=== PATIENT | female | born 1960 | race Caucasian/White ===

== ENCOUNTER 2023-07-09 13:13 | Inpatient (IN) | payer MEDICARE, MEDICAID ==
[~2023-07-09] VITALS: Ht 165.1 cm; Wt 51.4 kg
[~2023-07-09 13:13] MED LIST: ATOR10TA PO; LAMO25TA36 PO; LOSA-381 PO; NIFE90TA91 PO
[2023-07-09] MEDS ORDERED: OMEPRAZOLE 20 MG CAPSULE PO PRN (22:15)
[2023-07-09] MEDS ORDERED: CloNIDine HCL 0.1 MG TABLET PO PRN (22:15)
[2023-07-09] MEDS ORDERED: ALBUTEROL SULFATE HFA 90 MCG/PUFF 8 GM INHALER IH PRN (22:15)
[2023-07-09] MEDS ORDERED: IBUPROFEN 600 MG TABLET PO PRN (22:15)
[2023-07-09] MEDS ORDERED: MAG HYDROX/ALUMINUM HYD/SIMETH ES 30 ML SUSPENSION UDCUP PO PRN (22:15)
[2023-07-09] MEDS ORDERED: MAGNESIUM HYDROXIDE SUSPENSION 30 ML UDCUP PO PRN (22:15)
[2023-07-09] MEDS ORDERED: LOPERAMIDE HCL 2 MG CAPSULE PO PRN (22:15)
[2023-07-09] MEDS ORDERED: BENZOCAINE/MENTHOL LOZENGE PO PRN (22:15)
[2023-07-09] MEDS ORDERED: ONDANSETRON HCL 4 MG TABLET PO PRN (22:15)
[2023-07-09] MEDS ORDERED: DOCUSATE SODIUM 100 MG CAPSULE PO PRN (22:15)
[2023-07-09] MEDS ORDERED: PETROLATUM,WHITE 28 GM JELLY TP PRN (22:15)
[2023-07-09] MEDS ORDERED: BACITRACIN 28 GM OINTMENT TP PRN (22:15)
[2023-07-09] MEDS ORDERED: NICOTINE 21 MG/24 HOUR PATCH TD ONE (22:15)
[2023-07-09] MEDS: ZOLPIDEM TARTRATE 10 MG TABLET PO PRN (22:32)
[2023-07-09] MEDS: ACETAMINOPHEN 325 MG TABLET PO PRN (22:40)
[2023-07-09 22:44] VITALS: BP 128/82; PULSE 100; RESP 18; TEMP 98; O2SAT 96
[2023-07-10] MEDS: LORazepam 2 MG TABLET PO PRN (04:38)
[2023-07-10 06:06] LABS: GLUCOMETER DEV NAME(LOC) BV2X.2; GLUCOSE,POINT OF CARE 127 MG/DL (70-110)
[2023-07-10 08:45] VITALS: BP 145/88; PULSE 98; RESP 18; TEMP 98.4; O2SAT 97
[2023-07-10] MEDS: NICOTINE 21 MG/24 HOUR PATCH TD SCH (09:09)
[2023-07-10] MEDS ORDERED: OMEPRAZOLE 20 MG CAPSULE PO PRN (11:30)
[2023-07-10] MEDS ORDERED: PETROLATUM,WHITE 28 GM JELLY TP PRN (11:30)
[2023-07-10] MEDS ORDERED: ACETAMINOPHEN 325 MG TABLET PO PRN (11:30)
[2023-07-10] MEDS ORDERED: BACITRACIN 28 GM OINTMENT TP PRN (11:30)
[2023-07-10] MEDS ORDERED: DOCUSATE SODIUM 100 MG CAPSULE PO PRN (11:30)
[2023-07-10] MEDS ORDERED: ALBUTEROL SULFATE HFA 90 MCG/PUFF 8 GM INHALER IH PRN (11:30)
[2023-07-10] MEDS ORDERED: BENZOCAINE/MENTHOL LOZENGE PO PRN (11:30)
[2023-07-10] MEDS ORDERED: MAGNESIUM HYDROXIDE SUSPENSION 30 ML UDCUP PO PRN (11:30)
[2023-07-10] MEDS ORDERED: CloNIDine HCL 0.1 MG TABLET PO PRN (11:30)
[2023-07-10] MEDS ORDERED: IBUPROFEN 600 MG TABLET PO PRN (11:30)
[2023-07-10] MEDS ORDERED: LOPERAMIDE HCL 2 MG CAPSULE PO PRN (11:30)
[2023-07-10] MEDS: LOSARTAN POTASSIUM 50 MG TABLET PO ONE (12:49)
[2023-07-10] MEDS: HydrOXYzine PAMOATE 25 MG CAPSULE PO SCH (16:26)
[2023-07-10] MEDS: LamoTRIgine 25 MG TABLET PO SCH (16:26)
[2023-07-10 20:14] VITALS: BP 135/81; PULSE 84; RESP 22; TEMP 97.6; O2SAT 95
[2023-07-10] MEDS: ATORVASTATIN CALCIUM 10 MG TABLET PO SCH (20:45)
[2023-07-11 06:31] VITALS: BP 147/77; PULSE 71; TEMP 97.6
[2023-07-11 08:18] VITALS: BP 139/88; PULSE 97; RESP 15; TEMP 97.6; O2SAT 97
[2023-07-11] MEDS: ESCITALOPRAM OXALATE 10 MG TABLET PO SCH (08:39)
[2023-07-11] MEDS: NIFEdipine 90 MG ER TABLET PO SCH (08:40)
[2023-07-11] MEDS: LOSARTAN POTASSIUM 25 MG TABLET PO SCH (08:40)
[2023-07-11] MEDS: LORazepam 1 MG TABLET PO ONE (14:11)
[2023-07-11 20:17] VITALS: BP 122/94; PULSE 101; RESP 19; TEMP 97.7; O2SAT 93
[2023-07-12 08:12] VITALS: BP 112/77; PULSE 94; RESP 17; TEMP 97.8; O2SAT 97
[2023-07-12] MEDS: HALOPERIDOL 5 MG TABLET PO PRN (11:17)
[2023-07-12 21:27] VITALS: BP 104/63; PULSE 86; RESP 18; TEMP 98.7; O2SAT 96
[2023-07-13 08:39] VITALS: BP 134/75; PULSE 66; RESP 18; TEMP 97.8; O2SAT 97
[2023-07-13 21:25] VITALS: BP 122/70; PULSE 88; RESP 18; TEMP 96.7; O2SAT 97
[2023-07-14 08:13] VITALS: BP 109/69; PULSE 89; RESP 19; TEMP 98.1; O2SAT 97
[2023-07-14 12:10] VITALS: BP 129/83
[2023-07-14 19:39] VITALS: BP 146/80; RESP 19; O2SAT 97
[2023-07-14 20:31] VITALS: BP 141/78; PULSE 85; RESP 16; TEMP 97.3; O2SAT 95
[2023-07-15 08:39] VITALS: BP 124/84; PULSE 100; RESP 18; TEMP 97.8; O2SAT 96
[2023-07-15] MEDS: ONDANSETRON HCL 4 MG TABLET PO PRN (13:05)
[2023-07-15 18:20] VITALS: BP 145/67; PULSE 89; RESP 18; O2SAT 98
[2023-07-15 21:00] VITALS: BP 108/64; PULSE 102; RESP 18; TEMP 98.1; O2SAT 97
[2023-07-16] MEDS: MAG HYDROX/ALUMINUM HYD/SIMETH ES 30 ML SUSPENSION UDCUP PO PRN (06:03)
[2023-07-16 08:19] VITALS: BP 114/61; PULSE 75; RESP 16; TEMP 97.7; O2SAT 95
[2023-07-16 08:47] LABS: HEMOGLOBIN A1C 6.7 % (3.8-5.6)
[2023-07-16 08:53] LABS: CHOL/HDL RATIO 3.2 (3.9-5.7)
[2023-07-16] MEDS: PNEUMOCOCCAL VACCINE POLYVALENT 0.5 ML SYRINGE [PPSV23] IM. ONE (16:47)
[2023-07-16 20:35] VITALS: BP 106/58; PULSE 83; RESP 18; TEMP 97.6; O2SAT 98
[2023-07-17] VITALS (7 sets, daily range): BP systolic 105–136; BP diastolic 61–77; PULSE 75–90; RESP 18; TEMP 97–98.4; O2SAT 96–98
[2023-07-18 00:30] VITALS: BP 116/68; PULSE 76; RESP 18; TEMP 97.5; O2SAT 97
[2023-07-18 01:45] VITALS: BP 110/65; PULSE 77; RESP 18; TEMP 97.1; O2SAT 96
[2023-07-18 09:54] VITALS: BP 139/75; PULSE 83; RESP 17; TEMP 97.3; O2SAT 95
[2023-07-18] MEDS: LORazepam 1 MG TABLET PO PRN (14:25)
[2023-07-18 21:01] VITALS: BP 118/83; PULSE 97; RESP 18; TEMP 96.9; O2SAT 98
[2023-07-19 08:54] VITALS: BP 104/62; PULSE 76; RESP 18; TEMP 97.8; O2SAT 96
[2023-07-19] MEDS ORDERED: ESCI-8 PO (14:29)
[2023-07-19] MEDS ORDERED: HYDR-4808 PO (14:30)
[2023-07-19] MEDS ORDERED: LAMO25TA36 PO (14:31)
== END 2023-07-19 18:45 | disposition home or self-care (01) | DRG 885 ==
LOC: EDBD 21:31 → B2X 21:31 → B3A 07-13 09:59 → B2S 07-13 17:57
PROVIDERS: ADMIT Psychiatry & Neurology Psychiatry; ATTEND Psychiatry & Neurology Psychiatry
PROC: GZHZZZZ Group Psychotherapy (ICD-10-PCS; principal; 2023-07-09)
PROC: GZ52ZZZ Individual Psychotherapy, Cognitive (ICD-10-PCS; 2023-07-09)
DX: F31.9 Bipolar disorder, unspecified (principal); R45.851 Suicidal ideations; F41.9 Anxiety disorder, unspecified; G47.00 Insomnia, unspecified; I10 Essential (primary) hypertension; K59.00 Constipation, unspecified; E78.5 Hyperlipidemia, unspecified; F43.10 Post-traumatic stress disorder, unspecified; F10.10 Alcohol abuse, uncomplicated; Y90.9 Presence of alcohol in blood, level not specified; Z88.0 Allergy status to penicillin; Z72.0 Tobacco use; Z91.51 Personal history of suicidal behavior
CPT/HCPCS: 80061; 82962; 83036; 87081; 90732; Q0162